=== PATIENT | male | born 1960 | race Two or more races ===

== ENCOUNTER 2025-08-27 11:43 | Outpatient (AMB) | payer OTHER, SELFPAY ==
--- NOTE | 2025-08-27 11:54 | A.OFFPC_ITS ---
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 Required: No Allergies Sulfa (Sulfonamide Antibiotics) Allergy (Severe, Verified 08/27/25 12:31) swelling lips peanuts Allergy (Severe, Uncoded 08/27/25 12:02) lip swelling Medication List - Last Reconciled 08/24/25 by Becky Garcia, [facility]- amlodipine 10 mg PO DAILY atorvastatin 80 mg PO DAILY ezetimibe 10 mg PO DAILY glimepiride 2 mg PO DAILY lisinopril 10 mg PO DAILY metoprolol succinate ER 50 mg PO DAILY sitagliptin phos-metformin 100-1,000 mg ER (Janumet XR) 1 tab PO QPM tadalafil 20 mg PO DAILY PRN Tobacco use date assessed: 08/27/25 Dental Screening Dental Screen Date: 08/27/25 Did you have a dental visit in the last 12 months?: No Did you have a dental problem in the last 6 months where you did not have access to dental care?: No Was dental information given to patient?: Patient has dentist HPI HPI Comments History of Present Illness Details 64-year-old male with history of rheumat ic fever, history of syphilis, hyperlipidemia, radicular low back pain, type 2 diabetes, erectile dysfunction, hypertension, heart murmur Family history: Mom with breast cancer Social [employer] w/ rotating shift Health Maintenance: Colon PSA Tdap 2023 Specialists: Optho diabetic eye exam [facility] at [facility] Endo at [facility] History of Present Illness The patient is a 64-year-old male presenting [facility], with a focus on management of uncontrolled type 2 diabetes and its complications. Previous PCP at [facility], record received and reviewed. Uncontrolled Type 2 Diabetes Mellitus: - The patient has a history of uncontrol led type 2 diabetes, with a recent A1c of 14%. - He has been out of his diabetes medica tions for a couple of weeks due to running out. - His previous regimen included glipizid e and Janumet. - He notes that Janumet is expensive, co sting about $80. - He has never seen a diabetic eye docto r. Hypertension: - He has a history of hypertension and i s currently taking lisinopril, metoprolol, and amlodipine. - He reports being adherent with these m edications and has a sufficient supply, which he obtains through [facility]. Hyperlipidemia: - The patient has a history of hyperlipi demia and is prescribed atorvastatin and ezetimibe (Zetia). - He reports taking his cholesterol medi cations but needs refills for both. Erectile Dysfunction: - He has a history of erectile dysfuncti on and uses tadalafil. - He requests a refill for this medicati on. 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 - He notes that he sometimes gets only t hree hours of sleep and requested sleeping pills for occasional use. - He denies any prior use of sleep aids. Past Medical History - Type 2 Diabetes Mellitus - Hypertension - Hyperlipidemia - Erectile Dysfunction Review of Systems - General: Reports sleepiness. - Neurological: Reports insomnia seconda ry to rotating shift work. - Allergic/Immunologic: Positive for all ergies to sulfite and peanuts. Physical Exam General: Well developed, well nourished, in no acute distress. Appears stated age. Head: Normocephalic, atraumatic. Eyes: Pupils are equal, round and reactive to light and accommodation. Conjunctivae are clear. Vision grossly normal. Lungs: Clear to auscultation bilaterally. No rales, rhonchi or wheeze noted. Good air flow in all weaver. Heart: Regular rate and rhythm. 2/6 murmurs, click, rubs or gallops are noted. Musculoskeletal: Joints are nontender, without swelling, redness, or effusions. Pulses: Peripheral pulses are equal and palpable bilaterally. Extremities: No clubbing, cyanosis nor edema is noted. Psych: Mood and affect appropriate. Results - Labs: - Hemoglobin A1c: 14% Medical Decision Making The patient is a 64-year-old male establishing care, presenting with severely uncontrolled type 2 diabetes, evidenced by an A1c of 14%. His hyperglycemia is multifactorial, stemming from medication non-adherence due to running out of his prescriptions and the high cost of Janumet. The primary goal of this visit is to regain glycemic control to mitigate the risks of long-term complications. The treatment plan involves modifying his medication regimen to an affordable and effective combination, addressing insurance coverage limitations. He will be transitioned from Janumet to metformin and Jardiance, with an increased dose of glimepiride. To improve adherence, the regimen is simplified to once-daily dosing. Given the severity of his diabetes, referrals to an insecticide sprayer and an hoop flaring machine operator helper for a diabetic eye exam are critical for comprehensive management and to screen for complications like retinopathy, which can lead to blindness. His other chronic conditions, including hypertension, hyperlipidemia, and erectile dysfunction, will be managed with medication renewals sent to his preferred pharmacies. Laboratory studies, including lipid panel, renal function, liver function, and a PSA, are ordered for baseline assessment and monitoring. The patient will follow up in two months to assess his response to the new treatment regimen. Plan 1. Uncontrolled Type 2 Diabetes Mellitus - Discontinue Janumet due to cost concer ns. - Start Jardiance 25mg one tablet once d aily. - Increase glimepiride to 4 mg once yoselyn y. - Start metformin, four tablets once a d ay. - All diabetes medications should be von en at the same time with some food. - Place referral to a diabetes specialis t at [facility]. - Place referral to [facility] to[facility] for a diabetic eye exam. - Order labs today including cholesterol , kidney function, and liver function tests. - Schedule follow-up in approximately tw o months to re-evaluate. 2. Hyperlipidemia - Renew prescriptions for atorvastatin a nd ezetimibe (Zetia) and send to [facility] pharmacy. 3. Hypertension - Renew prescriptions for lisinopril, am lodipine, and metoprolol to be filled via [facility]. 4. Erectile Dysfunction - Send prescription for tadalafil (Ciali s) to [facility] pharmacy. - Patient advised that this medication i s not covered by insurance and will be an [id number] expense. 5. Insomnia - Will provide a prescription for a slee p aid for occasional use as requested. Traz. 50mg PRN 6. Preventative Care - Order a PSA test today for prostate ca ncer screening. - Patient declined the seasonal flu shot . Patient Instructions - You will be starting a new medication regimen for your diabetes. This includes Jardiance (one tablet daily), glimepiride (one 4 mg tablet daily), and metformin (four tablets daily). - You can take all your diabetes pills a t the same time each day, but make sure to take them with a little food in your stomach. - Your prescriptions for diabetes, clari sterol (atorvastatin and Zetia), and erectile dysfunction (Cialis) will be sent to the [facility] on [facility] in [place]. - Your blood pressure medications will b e renewed through [facility]. - Please be aware that your prescription for Cialis is not covered by insurance and will be an [id number] cost. - You will be receiving a phone call fro m the student records specialist's office at [facility] to schedule an appointment. - You will also receive a call from [facility] in [place] to schedule a diabetic eye exam. - Please go to the lab here in the offic e today to have your blood drawn. They will check your cholesterol, kidney, liver, and prostate levels. - Please book your next appointment with me for about two months from now (late September or early October) for CPE/DM fu, sooner as needed. Consent The patient provided verbal consent to undergo blood draws for laboratory testing today after the need for the tests was discussed. Patient was informed and verbally consented to the use of an ambient scribe for clinic note documentation during this visit. Total time spent caring for the patient today was 45 minutes. This includes time spent before the visit reviewing the chart, time spent during the visit, and time spent after the visit on documentation, reviewing laboratory results, diagnostic imaging, medications, performing a medically necessary evaluation, counseling on diagnoses, care coordination, ordering appropriate tests, ordering appropriate medications, review of tests performed by other providers, reporting test results with the patient, communication with other healthcare providers. 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 1. Little interest or pleasure in doing things: not at all 2. Feeling down, depressed, or hopeless: not at all 3. Trouble falling or staying asleep, or sleeping too much: not at all 4. Feeling tired or having little energy: not at all 5. Poor appetite or overeating: not at all 6. Feeling bad about yourself - or that you are a failure or have let yourself or your family down: not at all 7. Trouble concentrating on things, such as reading the newspaper or watching television: not at all 8. Moving or speaking so slowly that other people could have noticed. Or the opposite - being so fidgety or restless that you have been moving around a lot more than usual: not at all 9. Thoughts that you would be better off or of hurting yourself in some way: not at all Total score: 0 Depression Screening Interpretation: Negative Depression Screening Done: Yes 57463 - PHQ-9 Billing: Yes Source: Developed by Drs. Grabiel Tanner, Marisela Mckeon, Kev Bosch and colleagues, with an educational derrick from [employer]. Thrive Questionnaire Date Thrive assessed: 08/27/25 I am a: Patient What is your living situation today?: I have a steady place to live Within the past 12 months, did the food you bought not last and you didn't have the money to get more?: I choose not to answer this question Within the past 12 months, did you worry whether your food would run out before you got money to buy more?: Never true Do you have trouble paying for medicines?: No Do you have trouble getting transportation to medical appointments?: No Do you have trouble paying your heating and electricity bill?: I choose not to answer this question Do you have trouble taking care of your child, family member or friend?: I choose not to answer this question Do you have trouble with day-to-day activities such as bathing, preparing meals, shopping, managing finances, etc.?: I choose not to answer this question Are you currently unemployed and looking for a job?: No Are you interested in more education?: I choose not to answer this question Please select the resources that you would like help with: Food Currently or been in a relationship where the following occur: No concerns reported THRIVE Score: 0 AUDIT C Alcohol Use Questionnaire (AUDIT-C) 1. How often do you have a drink containing alcohol?: Monthly or less 2. How many drinks containing alcohol do you have on a typical day when you are drinking?: 1 or 2 3. How often do you have six or more drinks on one occasion?: Monthly Total Score: 3 YUNIOR-7 AMB Questionnaire YUNIOR-7 Date YUNIOR - 7 assessed: 08/27/25 Feeling nervous, anxious, or on edge: 0 = Not at all Not being able to stop or control worryin = Not at all Worrying too much about different things: 0 = Not at all Trouble relaxin = Not at all Being so restless that it is hard to sit still: 0 = Not at all Becoming easily annoyed or irritable: 0 = Not at all Feeling afraid as if something awful might happen: 0 = Not at all Total YUNIOR-7 score (0-4 normal; 5-9 mild; 10-14 moderate; 15-21 severe): 0 Source: Developed by Drs. Grabiel Tanner, Marisela Mckeon, Kev menon nd colleagues, with an educational derrick from [employer]. Physical exam (Primary Care) Vital Signs: Last Vital Signs Temp 98.7 F 08/27/25 12:01 Pulse 87 08/27/25 12:01 Resp 14 08/27/25 12:01 BP 136/88 08/27/25 12:01 Pulse Ox 98 08/27/25 12:01 Oxygen Delivery Method Room Air 08/27/25 12:01 BMI result Body Mass Index 28.8 Tobacco/Smoking Status: Tobacco use Status Tobacco use date assessed 08/27/25 08/27/25 12:09 Patient Tobacco Use Status Never used Tobacco 08/27/25 12:11 e-Cigarette/Vaping Use Never Used 08/27/25 12:11 PHQ-9: PHQ-9 Score PHQ-9: Total score 0 08/27/25 12:21 Depression Screening Interpretation: Negative Thrive Assessment: Date of Thrive Assessment Date Thrive assessed 08/27/25 08/27/25 12:11 Currently or been in a relationship where the following occur: No concerns reported Results AMB Hemoglobin A1c AMB Hemoglobin A1c 14 % Last Edit by Brenda Shook CMA on 08/27/25 12:15 Results Reviewed Results Reviewed: Laboratory Last Values Hgb A1c (Clinic) 14 % (4.0-6.0) H 08/27/25 12:09 Coding Level of Care Code New Pt Level 4 (06774) Complex EM visit Add On G2211 Diagnoses Encounter to establish care Z76.89 Diabetes mellitus with complication E11.8 Mixed hyperlipidemia E78.2 Hyperlipidemia type: mixed hyperlipidemia Erectile dysfunction due to diseases classified elsewhere N52.1 Erectile dysfunction type: due to other secondary cause Influenza vaccination declined Z28.21 Hypertension complicating diabetes E11.59; I15.2 Additional Codes PHQ-9 - 85022 - PHQ-9 Billing: Yes ([id number]) Assessment & Plan Assessment & Plan (1) Encounter to establish care: Code(s): Z76.89 - Persons encountering health services in other specified circumstances (2) Diabetes mellitus with complication: Comment: HLD and HTN Code(s): E11.8 - Type 2 diabetes mellitus with unspecified complications Category: Medical (3) HLD (hyperlipidemia): Code(s): E78.5 - Hyperlipidemia, unspecified Category: Medical Qualifiers: Hyperlipidemia type: mixed hyperlipidemia Qualified Code(s): E78.2 - Mixed hyperlipidemia (4) Erectile dysfunction: Code(s): N52.9 - Male erectile dysfunction, unspecified Category: Medical Qualifiers: Erectile dysfunction type: due to other secondary cause Qualified Code(s): N52.1 - Erectile dysfunction due to diseases classified elsewhere (5) Influenza vaccination declined: Onset Date: ~08/27/25 Code(s): Z28.21 - Immunization not carried out because of patient refusal Category: Medical (6) Hypertension complicating diabetes: Code(s): E11.59 - Type 2 diabetes mellitus with other circulatory complications; I15.2 - Hypertension secondary to endocrine disorders Category: Medical Plan . Orders: Orders Complete Blood Count no Diff Today E11.8 - Type 2 diabetes mellitus with unspecified complications, E78.5 - Hyperlipidemia, unspecified Comprehensive Met. Panel Today E11.8 - Type 2 diabetes mellitus with unspecifie d complications, E78.5 - Hyperlipidemia, unspecified Lipid Panel Today E11.8 - Type 2 diabetes mellitus with unspecified complications, E78.5 - Hyperlipidemia, unspecified Microalbumin, Random (w Creat) Today E11.8 - Type 2 diabetes mellitus with unspecified complications, E78.5 - Hyperlipidemia, unspecified Vitamin B12 and Folate Today E11.8 - Type 2 diabetes mellitus with unspecified complications, E78.5 - Hyperlipidemia, unspecified AMB Hemoglobin A1c Today E11.9 - Type 2 diabetes mellitus without complications Prostate Specific Antigen Scr Today E11.8 - Type 2 diabetes mellitus with unspecified complications, E78.5 - Hyperlipidemia, unspecified TSH reflex Free T4 Today E11.8 - Type 2 diabetes mellitus with unspecified complications, E78.5 - Hyperlipidemia, unspecified Vitamin D 25-OH Total Today E11.8 - Type 2 diabetes mellitus with unspecified complications, E78.5 - Hyperlipidemia, unspecified Referrals Endocrinology Referral E11.8 - Type 2 diabetes mellitus with unspecified complications Optometry Referral E11.8 - Type 2 diabetes mellitus with unspecified complications, H53.8 - Other visual disturbances Medications: New atorvastatin 80 mg PO DAILY 90 tabs 2RF ezetimibe 10 mg PO DAILY 90 tabs 2RF lisinopril 10 mg PO DAILY 90 tabs 2RF metoprolol succinate ER 50 mg PO DAILY 90 tabs 2RF tadalafil 20 mg PO DAILY PRN 90 tabs 0RF intercourse metformin ER (Glucophage XR) 2,000 mg (4 x 500 mg) PO BID 720 tabs 2RF 90 days glimepiride 4 mg PO DAILY 90 tabs 2RF empagliflozin (Jardiance) 25 mg PO QAM 90 tabs 2RF amlodipine 10 mg PO DAILY 90 tabs 2RF trazodone 50 mg PO BEDTIME PRN 30 tabs 2RF sleep Patient Instructions: Walk-In Care (Urgent Care): We Make it Easy Walk-in for urgent medical issues such as: ? Seasonal Allergies ? Insect Bites ? Cough ? Diarrhea ? Acute Asthma Attacks ? Back, Knee or Joint Pain ? Ear Infection ? Fever without a Rash ? Headaches ? Nausea ? [place], Rash or Skin Irritation ? Sore Throat ? Sports Physicals ? Vomiting Most insurances are accepted. Patients do not need to be part of the [facility] to seek care at the walk-in clinic. Locations [address] [place] [address] Open Tuesday through Tuesday 8am-5pm *Hours may vary due to staffing availability. To confirm Walk-In Care hours please call. [address] [facility] , [place] [address] ? [phone] [facility] Walk-In Care in [place] provides services to ages 18 and over. Open Tuesday-Tuesday: 7 a.m. to 5 p.m. and Tuesday: 9 a.m. to 3 p.m.* *Hours may vary due to staffing availability. To confirm Walk-In Care hours in [place], please call [phone]. [address] [place] [address] ? [phone] [facility] Walk-In Care in [place] provides services to ages 12 and over. Open Tuesday-Tuesday: 8 a.m. to 5 p.m. Hours may vary due to staffing availability. To confirm Walk-In Care hours in [place], please call [phone]. LABORATORY SERVICES: [facility] Lab ? Primary Location [address] [place] [address] Tuesday through Tuesday 6:00 AM ? 5:00 PM Tuesday 7:00 AM ? 11:00 AM* [phone] The [facility] Lab is centrally located near the front entrance of the [facility] for easy outpatient access. Convenient parking is provided for outpatients. *Hours may vary due to staffing availability. To confirm Laboratory hours for any location, please call [phone]. Offsite Location For your convenience, we offer offsite laboratory draw stations at the following locations: [address] [place] [address] ? [address], [address] [place] [address] Tuesday through Tuesday 7:30 AM ? 1:00 PM* [phone] *Hours may vary due to staffing availability. To confirm Laboratory hours for any location, please call [phone]. [place] ? [address] Tuesday through Tuesday 6:00 AM ? 3:30 PM* Tuesday 6:30 AM ? 3 PM* [phone] *Hours may vary due to staffing availability. To confirm Laboratory hours for any location, please call [phone] [place] [address] Tuesday through Tuesday 7:30 AM ? 4:00 PM* [phone] *Hours may vary due to staffing availability. To confirm Laboratory hours for any location, please call [phone] [place] [address] Tuesday through 9:00 AM ? 4:00 PM* *Hours may vary due to staffing availability. To confirm Laboratory hours for any location, please call [phone]. Appointments are not necessary. Walk-ins are welcome. Like all the departments throughout the [facility], our Lab undergoes frequent reviews to ensure the quality and accuracy of test results, and our staff takes special pride in its status as a nationally accredited facility. Patient Portal: [facility] ONE PATIENT. ONE RECORD. BETTER CARE. [facility] has a fully integrated, cutting- edge mobile electronic health information system that has revolutionized the way we care for our patients and manage our organization. This system improves communication and coordination enabling us to provide safe, higher-quality care, and an overall positive experience for staff and patients. Our first priority, as always, is to deliver the highest quality care possible. The system is running in the background supporting that priority. This portal is for all [facility] services and practices. If you are experiencing any technical difficulties with enrolling or logging into the Patient Portal please complete the [facility] Patient Portal Technical Support Form. [facility] now offers a new secure on-line interactive tool for patients to review their health information ? ?Patient Portal. This interactive web portal will enable patients and their families to take an active role in their care by providing easy, secure access to their health information via the internet. The Patient Portal provides patients with instant access to their health information, including laboratory results, medications, allergies, demographic information, visit history, and more. In addition to managing their own care, parents and health care proxies with authorized consent will appreciate the ability to access the records of those individuals for whom they provide care. Please note: if you wish to gain access (Proxy) to another patient?s portal, you will be required to come to the Medical Records Department in person at [facility]. Both the patient giving proxy access and the proxy will need to provide photo identification and complete the appropriate authorization. The Patient Portal also allows track their appointments online. The [facility] Patient Portal also saves patients time by allowing them to submit updates to their demographic and contact information prior to their visits. Portal email notifications will also alert patients to any new activity on their portal, such as test results and new appointments. In order to initially enroll in the [facility] Patient Portal, you will need to enter some required information including the following: * your [facility] Medical Record number * your personal home email address * name * date of Please note: In order to enroll in the [facility] Patient Portal, we need to have your email address on file in your electronic medical record. ?The email address needs to be specific for one person (yourself) in order for your Portal enrollment to be successful. ?You can update your email address in person with our Registration staff when you are registering for a hospital visit. ?Otherwise, you will need to come to the Health Information Management (Medical Records) Department at [facility]. ?We are open from Tuesday ? Tuesday from 7:30 a.m. ? 4:30 p.m. ?You will be required to present a photo id. Once you have successfully enrolled in the Patient Portal, you will receive a one-time user id and password for the Portal, sent to your email address. ?This will allow you to log into the Patient Portal within 99 hrs and reset your own logon id and password, and define personal security questions. ?Once your permanent login and password have been set, you can log into the [facility] Patient Portal at any time via the blue button above or from the Portal Logon button on any page of the [facility] website. [facility] and [facility] encourage all of our patients to enroll in Patient Portal as it presents a valuable opportunity for patients and their families to actively participate in their care and stay healthy Welcome to [facility]. ?We look forward to working with you.
[2025-08-27 12:01] VITALS: BP 136/88; PULSE 87; RESP 14; TEMP 37.1; O2SAT 98; BMI 28.8
--- OUTSIDE RECORDS SUMMARY | 2025-08-27 15:11 | XMS_ITS | Clinical Summary ---
Author Organization [facility] Address [address] [facility] [address] Phone Care Team Providers Care Returned Case Inspector Name Role Phone Marcos Ronquillo MD Primary Care Provider [phone] Allergies Active Allergy Reactions Criticality Noted Date Comments Peanut 03/06/2025 Sulfa (Sulfonamide Antibiotics) Swelling 04/2025 Medications aspirin 81 mg capsule Take 81 mg by mouth 1 (one) time each day. 10/27/20 22 Active atorvastatin (LIPITOR) 80 mg tablet Take 1 tablet (80 mg total) by mouth 1 (one) time each day. Active glimepiride (AMARYL) 2 mg tablet Take 1 tablet (2 mg total) by mouth 1 (one) time each day. 09/04/20 24 Active lisinopriL (PRINIVIL,ZESTRI L) 10 mg tablet Take 1 tablet (10 mg total) by mouth 1 (one) time each day. 12/06/19 25 Active loteprednol (LOTEMAX) 0.5 % ophthalmic suspension INSTILL 1 DROP INTO LEFT EYE TWICE A DAY FOR 2 WEEKS. 01/12/20 25 Active metFORMIN (GLUCOPHAGE) 500 mg tablet Take 1 tablet (500 mg total) by mouth 1 (one) time each day with breakfast. Active Janumet XR 100-1,000 mg tablet, ER multiphase 24 hr Take 1 tablet by mouth. 01/26/20 25 Active tadalafiL (CIALIS) 20 mg tablet Take 1 tablet (20 mg total) by mouth 1 (one) time each day if needed for erectile dysfunction. Active amLODIPine (NORVASC) 10 mg tabletIndication s:Secondary hypertension Take 1 tablet (10 mg total) by mouth 1 (one) time each day. 90 each 2 03/06/20 25 Active metoprolol succinate (TOPROL-XL) 25 mg 24 hr tabletIndication s:Coronary artery disease, unspecified vessel or lesion type, unspecified whether angina present, unspecified whether ione or transplanted heart,Secondary hypertension Take 1 tablet (25 mg total) by mouth 1 (one) time each day. Do not crush or chew. 30 each 2 03/06/20 25 Active ezetimibe (ZETIA) 10 mg tabletIndication s:Atheroscleroti c heart disease of ione coronary artery with other forms of angina pectoris (CMS/HCC V24) TAKE 1 TABLET BY MOUTH EVERY DAY 90 tablet 1 08/05/20 25 Active ezetimibe (ZETIA) 10 mg tablet Take 1 tablet (10 mg total) by mouth 1 (one) time each day. 025 Discontinued Active Problems Problem Noted Date Diagnosed Date Heart murmur 06/13/2025 CAD (coronary artery disease) 08/10/2022 Overview (03/06/2025): Last Assessment & Plan: The patient has a history of coronary artery disease. He underwent a cardiac CT scan in August 2022 that showed a normal left main, mixed calcified plaque in the LAD but without any evidence of moderate or severe stenosis (although the report states that it was difficult to exclude a <50% stenosis due to motion artifact), moderate calcifications in the circumflex without evidence of severe stenosis (but difficult to exclude a <70 percent stenosis due to motion artifact), and no evidence of moderate or severe stenosis in the RCA (but the report also states that it was difficult to exclude a<50% stenosis due to motion artifact). As such, the cardiac CTA did not show any evidence of left main disease but it did show what seems to be at least moderate coronary artery disease. As such, the patient was referred for further testing with a pharmacological cardiac nuclear PET stress test which was completed in February 2023. This study showed normal myocardial perfusion without any evidence of ischemia or infarct. The myocardial blood flow was also normal in reserve/rest; with mild diminished blood flow in the circumflex in stress with normal blood flow in the LAD/RCA in stress. The LVEF was noted to be normal at rest and with stress. As such, in summary, the cardiac nuclear PET stress test did not show any significant abnormalities. On today's visit, the patient denies any cardiac symptoms on his current medication regimen. He is currently on metoprolol, ezetimibe, aspirin, amlodipine, and atorvastatin. Given that the patient is currently asymptomatic from a cardiac standpoint and given his current nuclear PET stress test, there is no need for any invasive stratification (left heart catheterization) at this point. Will continue his current medication regimen as recommended in the ACC guidelines. The patient has a history of coronary artery disease. During today's visit, we reviewed the warning signs that should prompt an urgent medical evaluation. Specifically, we discussed that the patient should go to the hospital if he develops any chest discomfort at rest or worsening chest discomfort with exertion. Assessment & Plan (06/25/2025 8:02 AM EDT): Patient with history of CAD as evidenced by his previous cardiac testing as outlined above. He continues on aspirin, high intensity statin, zetia, amlodipine and metoprolol. Denies any chest discomfort or shortness of breath. He remains quite active with no exertional symptoms. Patient advised to seek emergency medical attention by calling 911 if they were to develop severe dyspnea, chest pain that did not resolve with rest or nitroglycerin, or if they were to faint. Assessment & Plan (03/06/2025 4:18 PM EDT): Patient with history of CAD as evidenced by his previous cardiac testing as outlined above. He continues on aspirin, high intensity statin, zetia, amlodipine and metoprolol. Denies any chest discomfort or shortness of breath. His ECG does show ST/T wave abnormalities in leads V5 and V6 which was evident in previous ECGs as well. He will complete an echocardiogram which will assess for any wall motion abnormality. Patient advised to seek emergency medical attention by calling 911 if they were to develop severe dyspnea, chest pain that did not resolve with rest or nitroglycerin, or if they were to faint. Orders: ECG 12 lead Lipid panel; Future metoprolol succinate (TOPROL-XL) 25 mg 24 hr tablet; Take 1 tablet (25 mg total) by mouth 1 (one) time each day. Do not crush or chew. Transthoracic echocardiogram (TTE) complete with PRN contrast, bubble, strain, and 3D order panel; Future perflutren lipid microsphere (DEFINITY) 1.3 mL in sodium chloride 0.9% 8.7 mL injection Hyperlipidemia 11/07/2020 Overview (03/06/2025): Last Assessment & Plan: The patient has a history of hyperlipidemia. The patient is currently on atorvastatin 80 mg orally daily and ezetimibe 10 mg orally daily. The patient's LDL target is 70 or below given his history of coronary artery disease. We will order a new lipid panel to evaluate the patient's current lipid control and determine if any adjustment are needed in the lipid lowering therapy. Assessment & Plan (06/25/2025 8:02 AM EDT): Patient to continue on atorvastatin and zetia. Will update lipid panel. I have reviewed with the patient the importance of a heart healthy lifestyle which includes eating a low-fat low-salt diet, getting regular exercise, maintaining a healthy weight, not smoking, and following up with routine medical care. Assessment & Plan (06/10/2025 12:50 PM EDT): Patient to continue on atorvastatin and zetia. Will update lipid panel. I have reviewed with the patient the importance of a heart healthy lifestyle which includes eating a low-fat low-salt diet, getting regular exercise, maintaining a healthy weight, not smoking, and following up with routine medical care. Orders: ECG 12 lead Lipid panel; Future ADDENDUM 06/10/25: Patient had an echocardiogram completed 05/29/2025 which showed LVEF 55 to 60%, no regional LV wall motion abnormalities, no significant valvular disease. During the patient's last office evaluation, he denied exertional symptoms. A colonoscopy is a very low risk procedure, patient does not require any additional testing prior to undergoing the procedure as planned. Hypertension 11/07/2020 Overview (03/06/2025): Last Assessment & Plan: The patient has a history of arterial hypertension. The patient's blood pressure today was noted to be well controlled. We'll continue the current antihypertensive medication regimen. Assessment & Plan (06/25/2025 8:02 AM EDT): Blood pressure is well-controlled today, continue on current antihypertensive medication regimen. Assessment & Plan (03/06/2025 4:18 PM EDT): Blood pressure is elevated today, 148/92. He does state he takes his most of his medications in the evening. Today, his metoprolol succinate was decreased to 25 mg daily due to bradycardia. With this dosage decrease into his high blood pressure, will increase his amlodipine to 10 mg daily. Will have him continue to monitor his blood pressure at home and notify the office if it continues to be elevated over 140/80 or if he were to experience hypotension. Orders: ECG 12 lead amLODIPine (NORVASC) 10 mg tablet; Take 1 tablet (10 mg total) by mouth 1 (one) time each day. metoprolol succinate (TOPROL-XL) 25 mg 24 hr tablet; Take 1 tablet (25 mg total) by mouth 1 (one) time each day. Do not crush or chew. Encounters Date Type Department Care Team Description 06/24/2025 3:10 PM EDT Office Visit [facility] [address] [facility] [address] [place] [address] Gris Stevens NP Coronary artery disease involving ione heart without angina pectoris, unspecified vessel or lesion type (Primary Dx); Hyperlipidemia, unspecified hyperlipidemia type; Hypertension, unspecified type 06/06/[address] [facility] [address] [facility] [address] [place] [address] Gris Stevens NP 06/05/[address] [facility] [address] [place] [address] Amanda Oliveira MA 05/31/[address] [facility] [address] [place] [address] Wagner Mi MD 05/29/2025 10:00 AM EDT Ancillary Procedure [facility] [address] [place] [address] Coronary artery disease, unspecified vessel or lesion type, unspecified whether angina present, unspecified whether ione or transplanted heart from Last 3 Months Social History Tobacco Use Types Packs/Day Years Used Date Smoking Tobacco: Never Smokeless Tobacco: Never Alcohol Use Standard Drinks/Week Comments Yes 0 (1 standard drink = 0.6 oz pur e alcohol) occ Sex and Gender Information Value Date Recorded Sex Assigned at Not on file Legal Sex Male 12:13 PM EST Gender Identity Not on file Sexual Orientation Not on file Obstetrics History Last Filed Vital Signs Vital Sign Reading Time Taken Comments Blood Pressure 124/80 06/24/2025 3:34 PM EDT Pulse 61 06/24/2025 3:34 PM EDT Temperature - - Respiratory Rate - - Oxygen Saturation 98% 06/24/2025 3:34 PM EDT Inhaled Oxygen Concentration - - Weight 83.9 kg (185 lb) 06/24/2025 3:34 PM EDT Height 170.2 cm (5' 7 ) 06/24/2025 3:34 PM EDT Body Mass Index 28.98 06/24/2025 3:34 PM EDT Plan of Treatment Health Maintenance Due Date Last Done Comments Colorectal Cancer Screening: Colonoscopy 1962 DTaP,Tdap,and Td Vaccines (1 - Tdap) 1981 Pneumococcal Vaccine: 50+ Years (1 of 1 - PCV) 2012 Zoster Vaccines (1 of 2) 2012 Cholesterol Screening (Lipid Panel) 10/09/2022 HIV Screening 10/09/2022 Hepatitis C Screening 10/09/2022 Social Influencers of Health Screening 10/09/2022 Hypertension/CHF/CAD Annual BMP Blood Test 10/10/2022 Depression Screening 10/31/2024 COVID-19 Vaccine (3 - 2024-2 6 season) 2025 11/27/2021, 10/30/2021 Influenza Vaccine (#1) 2025 RSV Immunization Adult Patients (1 - 1-dose 75+ series) 2037 HIB Vaccines Aged Out No longer eligi ble based on patient's age to complete this topic HPV Vaccines Aged Out No longer eligi ble based on patient's age to complete this topic Hepatitis A Vaccines Aged Out No long er eligible based on patient's age to complete this topic Hepatitis B Vaccines Aged Out No long er eligible based on patient's age to complete this topic IPV Vaccines Aged Out No longer eligi ble based on patient's age to complete this topic MMR Vaccines Aged Out No longer eligi ble based on patient's age to complete this topic Meningococcal ACWY Vaccine Aged Out N o longer eligible based on patient's age to complete this topic Meningococcal B Vaccine Aged Out No l onger eligible based on patient's age to complete this topic RSV Immunization Patients Under 20 months Aged Out No longer eligible b ased on patient's age to complete this topic Varicella Vaccines Aged Out No longer eligible based on patient's age to complete this topic Procedures Procedure Name Priority Date/Time Associated Diagnosis Comments TRANSTHORACIC ECHOCARDIOGRAM (TTE) COMPLETE W/ CONTRAST Routine 05/29/2025 10:42 AM EDT Coronary artery disease, unspecified vessel or lesion type, unspecified whether angina present, unspecified whether ione or transplanted heart from Last 3 Months Results * (ABNORMAL) TRANSTHORACIC ECHOCARDIOGRAM (TTE) COMPLETE W/ CONTRAST (05/29/2025 10:42 AM EDT) Left Atrium Minor Weir 5.8 cm CV PACS Left Atrium Major Weir 5.7 cm CV PACS LA Area Sys (A2C) 24 cm2 CV PACS LA Area Sys (A4C) 19 cm2 CV PACS LA Volume (BP) 64 mL CV PACS RA Area 15.3 cm2 CV PACS RA 2D Volume 43 mL CV PACS AV Mean Gradient 3 mmHg CV PACS AV Mean Gradient 3 mmHg CV PACS AV Mean Gradient 3 mmHg CV PACS AV Mean Gradient 3 mmHg CV PACS Ao VTI 33.8 cm CV PACS AV Peak Reyes 1.2 m/s CV PACS AV Peak Gradient 6 mmHg CV PACS AV Area Continuity Equation 2.4 cm2 CV PACS AV Area Peak Velocity 2.5 cm2 CV PACS Ascending Aorta 3.8 cm CV PACS IVSD 1.3(A) 0.6 - 1.0 cm CV PACS LVIDD 4.5 4.2 - 5.8 cm CV PACS LVIDS 2.6 2.5 - 4.0 cm CV PACS LVOT Diameter 2.0 cm CV PACS LVOT Mean Reyes 0.6 m/s CV PACS LVOT Mean Grad 2 mmHg CV PACS LVOT Mean Grad 2 mmHg CV PACS LVOT Peak VTI 25.7 cm CV PACS LVOT Peak Reyes 1.0 m/s CV PACS LVOT Peak Gradient 4 mmHg CV PACS LVPWD 1.0 0.6 - 1.0 cm CV PACS MV E' Tissue Velocity Lateral 14 cm/s CV PACS MV E' Tissue Velocity Septal 7 cm/s CV PACS LVOT Area 3.1 cm2 CV PACS LVOT Stroke Volume 81 mL CV PACS E Wave Deceleration Time 246(A) 119 - 242 ms CV PACS MV Peak A Reyes 0.37 m/s CV PACS MV Peak E Reyes 0.49 m/s CV PACS MV Mean Gradient 1 mmHg CV PACS MV VTI 25.1 cm CV PACS Mitral Valve Max Velocity 0.7 m/s CV PACS MV Peak Gradient 2 mmHg CV PACS MV Area Continuity Equation 3.2 cm2 CV PACS PV Acceleration Time 151 ms CV PACS PV Acceleration Time 151 ms CV PACS PV Acceleration Time 151 ms CV PACS RV Diastolic Basal Dimension 3.9 2.5 - 4.1 cm CV PACS RV S' 11 cm/s CV PACS TAPSE 24 mm CV PACS TR Peak Velocity 1.97 m/s CV PACS TR Peak Gradient 16 mmHg CV PACS E/E' Ratio Septal 7 CV PACS E/E' Ratio Averaged 5 CV PACS LVOT Stroke Index 40 mL/m2 CV PACS Relative Wall Thickness ratio 0.44 CV PACS LVOT:AV VTI Index 0.76 CV PACS FS 42 % CV PACS LV Mass 2D 186 g CV PACS Ascending Aorta Index 1.87 cm/m2 CV PACS MV VTI:LVOT VTI ratio 1.0 CV PACS LVOT flow 188 mL/s CV PACS RA 2D Volume Index 21 mL/m2 CV PACS FARHANA Index (VTI) 1.18 cm2/m2 CV PACS FARHANA Index (Pk Reyes) 1.23 cm2/m2 CV PACS LVIDD Index 2.22 cm/m2 CV PACS LVIDS Index 1.28 cm/m2 CV PACS AV Velocity Ratio 0.83 CV PACS E/A Ratio 1.3 CV PACS E/E' Ratio Lateral 4 CV PACS LA Volume Index (BP) 32 mL/m2 CV PACS LV Mass Index 2D 92 g/m2 CV PACS BSA 2.04 m2 CV PACS Aortic Root 3.8 cm CV PACS Aortic Root Index 1.87 cm/m2 CV PACS Anatomical Region Laterality Modality Ultrasound Narrative 06/02/2025 5:22 PM EDT Left ventricle cavity size is normal. Left ventricular systolic function is in the normal range with an ejection fraction of 55-60%. No regional LV wall motion abnormalities noted. Left ventricle mild asymmetric septal hypertrophy. Right ventricle cavity is normal. Right ventricular systolic function is normal. TAPSE 24 mm. RV S' 11 cm/sec. No significant valvular disease Left Ventricle Left ventricle cavity size is normal. There is mild asymmetric septal hypertrophy. Systolic function is normal with an ejection fraction of 55-60%. There are no regional LV wall motion abnormalities. There is no diastolic dysfunction. Right Ventricle Right ventricle cavity appears normal. Systolic function is normal. RV S' 11 cm/sec. Normal TAPSE (> 17 mm), measuring 24 mm. Left Atrium Left atrium cavity size is normal. Right Atrium Right atrium cavity is normal. IVC/SVC Inferior vena cava structure is normal. RA pressures is estimated to be 3 mmHg (IVC diameter <21 mm and decreases >50% during inspiration). Mitral Valve The leaflets are mildly thickened. There is mild annular calcification. There is trace regurgitation. There is no evidence of mitral valve stenosis. Tricuspid Valve Tricuspid valve structure is normal. There is trace regurgitation. There is no evidence of tricuspid valve stenosis. Aortic Valve The aortic valve is trileaflet. There is no significant regurgitation. There is no evidence of aortic valve stenosis. Pulmonic Valve Visualized portions of the pulmonic valve appear normal. No significant pulmonic valve regurgitation. There is no evidence of pulmonic valve stenosis. Ascending Aorta The aorta appears normal in size. Pericardium Pericardium appears normal. There is no pericardial effusion. Study Details Overall the study quality was technically difficult. Definity contrast was given to enhance imaging. Study was difficult due to: poor endocardial visualization. Wall Scoring Baseline Score Index: 1.00 The left ventricular wall motion is normal. us Gris Stevens NP CV ECHO PROCEDURES Final Resul t from Last 3 Months Insurance [facility] Care Teams Returned Case Inspector Relationship Specialty Start Date End Date Marcos Ronquillo MD [address] [place] [phone] PCP - General Internal Medicine 03/21/25
== END 2025-08-27 12:36 | disposition home or self-care (01) ==
LOC: HO.HMCFM 11:44
PROVIDERS: PCP Nurse Practitioner Family; Visit Provider Nurse Practitioner Family
DX: Z76.89 Persons encountering health services in other specified circumstances (principal); E11.59 Type 2 diabetes mellitus with other circulatory complications; E11.8 Type 2 diabetes mellitus with unspecified complications; E78.2 Mixed hyperlipidemia; N52.1 Erectile dysfunction due to diseases classified elsewhere; Z28.21 Immunization not carried out because of patient refusal; I15.2 Hypertension secondary to endocrine disorders

== ENCOUNTER → 2025-08-27 11:43 | Outpatient (BNVA) | payer OTHER, SELFPAY | PROVIDERS: PCP Nurse Practitioner Family; Visit Provider Nurse Practitioner Family | DX: I10 Essential (primary) hypertension (principal); E78.5 Hyperlipidemia, unspecified; N52.9 Male erectile dysfunction, unspecified; G47.00 Insomnia, unspecified; E78.2 Mixed hyperlipidemia; N52.1 Erectile dysfunction due to diseases classified elsewhere; E11.59 Type 2 diabetes mellitus with other circulatory complications; I15.2 Hypertension secondary to endocrine disorders; Z28.21 Immunization not carried out because of patient refusal; Z76.89 Persons encountering health services in other specified circumstances; Z79.899 Other long term (current) drug therapy | CPT/HCPCS: 83036; 96127 ==

== ENCOUNTER 2025-09-12 11:00 | Outpatient (REF) | payer OTHER, SELFPAY ==
--- OUTSIDE RECORDS SUMMARY | 2025-09-12 13:44 | XMS_ITS | Clinical Summary ---
Author Organization [facility] Address [address] [facility] [address] Phone Care Team Providers Care [employer] Name Role Phone Marcos Ronquillo MD Primary Care Provider [phone] Allergies Active Allergy Reactions Criticality Noted Date Comments Peanut 03/06/2025 Sulfa (Sulfonamide Antibiotics) Swelling 04/2025 Medications aspirin 81 mg capsule Take 81 mg by mouth 1 (one) time each day. 2 Active atorvastatin (LIPITOR) 80 mg tablet Take 1 tablet (80 mg total) by mouth 1 (one) time each day. Active glimepiride (AMARYL) 2 mg tablet Take 1 tablet (2 mg total) by mouth 1 (one) time each day. 4 Active lisinopriL (PRINIVIL,ZESTRIL ) 10 mg tablet Take 1 tablet (10 mg total) by mouth 1 (one) time each day. 5 Active loteprednol (LOTEMAX) 0.5 % ophthalmic suspension INSTILL 1 DROP INTO LEFT EYE TWICE A DAY FOR 2 WEEKS. 5 Active metFORMIN (GLUCOPHAGE) 500 mg tablet Take 1 tablet (500 mg total) by mouth 1 (one) time each day with breakfast. Active Janumet XR 100-1,000 mg tablet, ER multiphase 24 hr Take 1 tablet by mouth. 5 Active tadalafiL (CIALIS) 20 mg tablet Take 1 tablet (20 mg total) by mouth 1 (one) time each day if needed for erectile dysfunction. Active amLODIPine (NORVASC) 10 mg tabletIndications :Secondary hypertension Take 1 tablet (10 mg total) by mouth 1 (one) time each day. 90 each 2 5 Active metoprolol succinate (TOPROL-XL) 25 mg 24 hr tabletIndications :Coronary artery disease, unspecified vessel or lesion type, unspecified whether angina present, unspecified whether [place] or transplanted heart,Secondary hypertension Take 1 tablet (25 mg total) by mouth 1 (one) time each day. Do not crush or chew. 30 each 2 5 Active ezetimibe (ZETIA) 10 mg tabletIndications :Atherosclerotic heart disease of [place] coronary artery with other forms of angina pectoris (CMS/HCC V24) TAKE 1 TABLET BY MOUTH EVERY DAY 90 tablet 1 5 Active Active Problems Problem Noted Date Diagnosed Date [...] Description 06/24/2025 3:10 PM EDT Office Visit [facility] [address] [place] [address] Gris Stevens, [place] Coronary artery disease involving [place] heart without angina pectoris, unspecified vessel or lesion type (Primary Dx); Hyperlipidemia, unspecified hyperlipidemia type; Hypertension, unspecified type from Last 3 Months Social History Tobacco [...] [place] [id number] [facility] Care Teams [employer] Relationship Specialty Start Date End Date Marcos Ronquillo MD [address] [place] [phone] PCP - General Internal Medicine 03/21/25
[2025-09-12 14:30] LABS: Hematocrit 44.1 % (42.0-52.0); Hemoglobin 14.6 g/dl (14.0-18.0); Mean Corpuscular HGB Conc 33.1 g/dl (31.0-36.0); Mean Corpuscular Hemoglobin 28.2 pg (27.0-33.0); Mean Corpuscular Volume 85.1 fL (80.0-98.0); NRBC Abs Auto 0.000 X10*3/uL (0.0-0.012); NRBC Pct Auto 0.0 /100WBC (0.0-0.2); Platelet Count 155 X10*3/uL (160-400); Red Blood Count 5.18 X10*6/uL (4.60-5.80); White Blood Count 4.4 X10*3/uL (4.8-10.8)
[2025-09-12 15:09] LABS: Alanine Aminotransferase 54 U/L (0-40); Albumin Level 4.7 g/dL (3.5-5.0); Alkaline Phosphatase 63 U/L (39-117); Anion Gap 11 (12-20); Aspartate Amino Transferase 42 U/L (5-37); Blood Urea Nitrogen 29 mg/dL (9-16); Calcium 9.3 mg/dL (8.4-10.2); Carbon Dioxide 25 mmol/L (22-29); Chloride 107 mmol/L (96-108); Cholesterol 97 mg/dL (<200); Estimated Glomerular Filt Rate > 60; HDL Cholesterol 36 mg/dL (>40); Potassium 4.0 mmol/L (3.3-5.1); Sodium 139 mmol/L (135-145); Total Protein 7.5 g/dL (6.5-8.0); Triglycerides 36 mg/dL (<150)
[2025-09-12 15:29] LABS: Folate 9.5 ng/mL (> or = 4.0); Vitamin B12 802 pg/mL (200-900)
[2025-09-12 15:29] LABS: Microalbum/Creatinine Ratio Ur 23.9 ug/mg cr (<30)
== END 2025-09-12 11:01 | disposition home or self-care (01) ==
LOC: HO.WFDLDS 11:00
PROVIDERS: Visit Provider Nurse Practitioner Family
DX: Z12.5 Encounter for screening for malignant neoplasm of prostate (principal); E11.8 Type 2 diabetes mellitus with unspecified complications; E78.5 Hyperlipidemia, unspecified
CPT/HCPCS: 36415; 80053; 80061; 82043; 82306; 82570; 82607; 82746; 84153; 84443; 85027

== ENCOUNTER 2025-09-25 13:03 | Outpatient (REF) | payer OTHER, SELFPAY ==
[2025-09-25 14:33] LABS: Appearance Urine Clear; Glucose Urine UA >=1000 mg/dL (Negative); PH 5.5 (5.0-9.0); Specific Gravity - Urine >= 1.030 (1.005-1.025); UMIC TRIGGER UACC YES
--- OUTSIDE RECORDS SUMMARY | 2025-09-25 16:44 | XMS_ITS | Clinical Summary ---
Author Organization [facility] Address [address] [place] [address] Phone Care Team Providers Care Handcrew Foreman Name Role Phone Marcos Ronquillo MD Primary Care Provider [phone] Allergies Active Allergy Reactions Criticality Noted Date [...] type, unspecified whether angina present, unspecified whether [place] or transplanted heart,Secondary hypertension Take 1 tablet (25 mg total) by mouth 1 (one) time each day. Do not crush or chew. 30 each 2 5 Active ezetimibe (ZETIA) 10 mg tabletIndications :Atherosclerotic heart disease of [place] coronary artery with other forms of angina [...] each day. Do not crush or chew. Social History Tobacco Use Types Packs/Day Years [...] patient's age to complete this topic Insurance [facility] Care Teams Handcrew Foreman Relationship Specialty Start Date End Date Marcos Ronquillo MD [address] [place] [phone] PCP - General Internal Medicine 03/21/25
== END 2025-09-25 13:04 | disposition home or self-care (01) ==
LOC: HO.LAB 13:03
PROVIDERS: PCP Nurse Practitioner Family; Visit Provider Internal Medicine
DX: E11.8 Type 2 diabetes mellitus with unspecified complications (principal); Z79.84 Long term (current) use of oral hypoglycemic drugs
CPT/HCPCS: 81001; 82947

== ENCOUNTER 2025-09-25 13:03 | Outpatient (AMB) | payer OTHER, SELFPAY ==
--- NOTE | 2025-09-25 13:06 | A.OFFVIS_ITS ---
Vital Signs 09/25/25 13:07 Height 5 ft 7 in Weight 185 lb 3.013 oz BMI 29.0 BP 128/80 Blood Pressure Location Rt brachial Position Sitting Pulse 66 Pulse Source Pulse Oximeter Pulse Oximetry (%) 98 Oxygen Delivery Method Room Air Intake Visit Reasons: Type 2 diabetes mellitus with unspecified complica Intake Note: NEW Patient presents today to establish treatment for Type 2 Diabetes Mellitus: Last Diabetic eye exam was on: DUE, Referral was placed by the PCP Last Podiatry exam was on: Patient does not see a Superior Court Clerk Most recent HbA1c: 14.0%, 08/27/2025 Random Glucose: 121 mg/dL Devops Architect Required: No Accompanied by: Self / Same As Patient Allergies Sulfa (Sulfonamide Antibiotics) Allergy (Severe, Verified 09/25/25 13:09) swelling lips peanuts Allergy (Severe, Uncoded 09/25/25 13:09) lip swelling HPI Comments Details: 64-year-old male with history of rheumatic fever, history of syphilis, hyperlipidemia, radicular low back pain, type 2 diabetes, erectile dysfunction, hypertension, heart murmur Diagnosed 3-4 years up Current medications Metformin 1000mg twice daily Glimepiride 4mg daily Januvia 25mg daily Reports fasting 70-110. He just restarted medication ~2 weeks ago. Previously on Janumet-it was too expensive Specialists: Optho diabetic eye exam [facility] Recent A1c of 14% 08/17/2025 HLD-on statin & zetria Erectile Dysfunction: - He has a history of erectile dysfunction and uses tadalafil. He reports polyuria. Urinating q 2 hours with urgency. Denies dysuria He was referred by pcp for eye exam ROS CONSTITUTIONAL: Denies weight loss, fever and chills. HEENT: Denies changes in vision and hearing. RESPIRATORY: Denies SOB and cough. CV: Denies palpitations and CP GI: Denies abdominal pain, nausea, vomiting and diarrhea. : see HPI MSK: Denies new myalgia and joint pain. SKIN: Denies rash and pruritus. NEUROLOGICAL: Denies headache PSYCHIATRIC: Denies recent changes in mood. PHYSICAL EXAM: GENERAL: Alert and oriented x 3. NAD EYES: EOMI. Anicteric. HENT: Moist mucous membranes. No scleral icterus. No cervical lymphadenopathy. LUNGS: Clear to auscultation bilaterally. CARDIOVASCULAR: Regular rate and rhythm. No murmur. No JVD. ABDOMEN: Soft, non-tender +bs EXTREMITIES: No edema. Non-tender. SKIN: No rashes or lesions. Warm. NEUROLOGIC: No focal neurological deficits. CN II-XII grossly intact PSYCHIATRIC: Cooperative. 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 Advised to bring glucometer to visits CDE referral Continue current medications Treat hypoglycemia by rules of 15s. Polyuria-check UA/UC. Trial tamsulosin. PSA normal Follow up early Dec or sooner as needed Orders: Orders UA CC w/rflx Micro + Cult Today E11.8 - Type 2 diabetes mellitus with unspecified complications Referrals Diabetes Education Referral E11.8 - Type 2 diabetes mellitus with unspecified complications Medications: New tamsulosin 0.4 mg PO BEDTIME 90 caps 3RF Coding Level of Care Code Est Pt Level 4 (73316) Diagnoses Diabetes mellitus with complication E11.8
[2025-09-25 13:07] VITALS: BP 128/80; PULSE 66; O2SAT 98; BMI 29.0
[2025-09-25 13:14] LABS: Glucose, Whole Blood 121 mg/dL (60-115)
== END 2025-09-25 13:30 | disposition home or self-care (01) ==
LOC: HO.ENCR 13:03
PROVIDERS: PCP Nurse Practitioner Family; Visit Provider Internal Medicine
DX: E11.8 Type 2 diabetes mellitus with unspecified complications (principal)